=== PATIENT | male | born 1955 | race Two or more races ===

== ENCOUNTER 2018-05-04 14:32 | Emergency (ER) | payer MEDICAID ==
[~2018-05-04] VITALS: Ht 185.4 cm; Wt 102.5 kg
[2018-05-04] MEDS ORDERED: LOSARTAN POTASS50 MG ORAL (14:54)
[2018-05-04] MEDS ORDERED: ASPIRIN325 MG ORAL (14:54)
[2018-05-04] MEDS ORDERED: IMITREX50 MG ORAL (14:54)
[2018-05-04] MEDS ORDERED: DIPHENHYDRAMINE25 M1 ORAL (14:54)
[2018-05-04] MEDS ORDERED: MELATONIN3 MG ORAL (14:54)
[2018-05-04] MEDS ORDERED: LEXAPRO10 MG ORAL (14:54)
[2018-05-04] MEDS ORDERED: TRAZODONE HCL100 MG ORAL (14:54)
[2018-05-04] MEDS ORDERED: HYDROCORTISONE-30 GM TOPIC (15:21)
[2018-05-04] MEDS ORDERED: CLARITIN10 M1 ORAL (15:21)
--- NOTE | 2018-05-04 15:21 | Emergency Room Report ---
History of Present Illness General Chief Complaint: General Complaint Source: Patient Present Illness HPI 62-year-old male patient presents ER complaining of elevated blood pressure and rash on his bilateral arms. reports currently staying at [facility] for clinical depression. Reports was on metoprolol before switching to new medications earlier this week, states was not taking blood pressure medication for the past 5 days before giving dose of valsartan today, states will now be taking valsartan hydrochlorothiazide, has not begun chlorothiazide medication. States had elevated pressure earlier this morning prior to taking valsartan, states after medication was in the "140s", states due to initial concern of elevated blood pressure was told to report to the nearest ER, reports blood pressure controlled at this time, states small elevation likely due to "white coat syndrome". Denies fever, chest pain, shortness of breath. Denies taking blood thinner medication. Denies BRUNNER or abdominal pain. Also complaining of rash on bilateral upper extremities. Reports contact irritation due to use of Clorox bleach wipes on blood pressure cuff was then used on his arms. Reports burning sensation. Reports has been present for the past few days. Reports has washed and thoroughly. Denies fever, chest pain, shortness of breath. denies vomiting. Denies blisters. denies thoughts of hurting herself or others.reports takes Eskalith for depression. Allergies: Coded Allergies: CHLORPROMAZINE (Verified Allergy, Unknown, 05/04/18) PENICILLINS (Verified Allergy, Unknown, 05/04/18) Patient History Past Medical History: see triage record Reviewed Nursing Documentation: PMH: Agreed; PSxH: Agreed Nursing Documentation-PMH Past Medical History: No History, Except For Hx Hypertension: Yes History Of Psychiatric Problem: No - depression Review of Systems All Other Systems: negative except mentioned in HPI Physical Exam Vital Signs Date Time Temp Pulse Resp B/P (MAP) Pulse Ox O2 Delivery O2 Flow Rate FiO2 05/04/18 14:35 98.8 94 18 164/91 97 Room Air 98.8 Sp02 EP Interpretation: reviewed, normal General Appearance: well appearing, no apparent distress, alert, GCS 15, non- toxic Head: normocephalic, atraumatic Eyes: bilateral eye normal inspection, bilateral eye PERRL ENT: hearing grossly normal, normal pharynx, no angioedema, normal voice, uvula midline, moist mucus membranes Neck: full range of motion Respiratory: lungs clear, normal breath sounds, no rhonchi, no respiratory distress, no accessory muscle use, no wheezing, speaking full sentences Cardiovascular #1: regular rate, rhythm, no edema Musculoskeletal: back normal, digits/nails normal, gait/station normal, normal range of motion, non-tender Neurologic: alert, oriented x3, responsive, motor strength/tone normal, sensory intact Psychiatric: mood/affect normal Skin: rash - macular erythematous rash with mild urticaria, no warmth to touch , blanches with pressure, no vesicles or blisters, no surrounding edema Medical Decision Making PA Attestation Dr. Vega is my supervising Physician whom patient management has been discussed with. Diagnostic Impression: Primary Impression: Hypertension Additional Impression: Contact dermatitis ER Course Pt. presents to the ED c/o elevated blood pressure reading, history of hypertension, rash on bilateral arms. Ddx considered but are not limited to blood pressure, [place], whitecoat hypertension , cellulitis, contact dermatitis, scabies, eczema, allergic reaction, shingles. Vital signs: are WNL, pt. is afebrile ER COURSE: patient denies chest pain, shortness of breath, EKG shows no ST elevations or atrial fibrillation. no [place]. Does not require cardiac workup at this time. EKG showed QT prolongation, maybe due to patient's current medications, follow- up with PCP and discuss referral to body designer as needed. EKG discussed with patient. Patient declined xray and labs at this time. Blood pressure stable in the ER. Patient advised to follow-up with physician and discuss blood pressure medication. advised patient on low sodium diet. Patient resting comfortably in bed, reading a book, nontoxic appearing, in no acute distress. ER precautions given. denies thoughts of hurting herself or others at this time, do not believe the patient danger to himself. patient ok for outpatient therapy and follow-up. physical exam shows likely contact dermatitis due to exposure to chemical irritant. Provided patient with hydrocortisone cream in ER, will discharge home with Rx. take Benadryl at night for itching symptoms, side effect drowsiness, do not take prior to drinking, driving, operating machinery. Take Claritin during the day, will provide Rx. Followup with operations vice president. DISCHARGE: Rx provide hydrocortisone cream Rx provided for Claritin At this time pt is stable for d/c to home. Patient is resting comfortably, in no acute distress, nontoxic appearing, talking without difficulty. Patient to take medications as instructed Will provide with patient care instructions and any necessary prescriptions. Care plan and follow-up instructions provided. Patient instructed to follow-up with primary care provider in 3 - 5 days. Patient questions asked and answered. Patient reports understanding and agreement to treatment plan. ER precautions given. Patient instructed to return to ER immediately for any new or worsening of symptoms including but not limited to increasing SOB, persistent fever, chest pain, intractable vomiting. - Please note that this Emergency Department Report was dictated using [employer] traffic manager technology software, occasionally this can lead to erroneous entry secondary to interpretation by the dictation equipment. EKG Diagnostic Results Rate: normal Rhythm: NSR ST Segments: no acute changes Other Impression QT prolongation QT/QTc 424/483 ms ASA given to the pt in ED: No PA Scribe Text Luigi Denney PA-C Rhythm Strip Diag. Results EP Interpretation: yes Rate: 78 Rhythm: NSR, no PVC's, no ectopy PA Scribe Text Luigi Denney PA-C Last Vital Signs Date Time Temp Pulse Resp B/P (MAP) Pulse Ox O2 Delivery O2 Flow Rate FiO2 05/04/18 14:35 98.8 94 18 164/91 97 Room Air 98.8 Disposition: HOME, SELF-CARE Condition: Stable Scripts Loratadine (CLARITIN) 10 Mg Tab.rapdis 10 MG ORAL DAILY, #30 TAB Prov: Shahriar Denney 05/04/18 Hydrocortisone/Aloe Vera 1%* (HYDROCORTISONE-ALOE 1% CREAM*) Y Cr 1 APPLIC TOPIC Q6H PRN for Itching, #30 GM Prov: Shahriar Denney 05/04/18 Patient Instructions: Contact Dermatitis, [id number], DASH Eating Plan, Hypertension Additional Instructions: Followup with primary care provider in 3 -5 days. Discuss HTN medications. Request referral to dermatology as needed. Do not scratch or itch. Apply cool compresses to affected area. Take medications as directed. Do not apply topical steroid medication to face or skin creases. Apply small amount to affected area. SE Benadryl drowsiness, do not take prior to drinking, driving, operating heavy machinery. Take Claritin during the day and Benadryl at night for itching symptoms. Patient questions asked and answered. ER precautions given, patient instructed to return to ER immediately for any new or worsening of symptoms. [facility] [place] [place] [facility] Shahriar Denney May 04, 2018 15:21
[2018-05-04 15:35] VITALS: BP 166/92
[2018-05-04] MEDS ORDERED: Hydrocortisone 1% Cr 15gm TOPIC ONE (15:45)
[2018-05-04 16:14] VITALS: BP 166/92
--- NOTE | 2018-05-06 12:04 | Cardiology Report ---
APPROVED REPORT EKG Measurement Heart [id number] Normal sinus rhythm Prolonged QT Abnormal ECG
== END 2018-05-04 16:14 | disposition home or self-care (01) ==
LOC: EMR 15:42
DX: I10 Essential (primary) hypertension (principal); L25.9 Unspecified contact dermatitis, unspecified cause; Z88.0 Allergy status to penicillin; Z88.8 Allergy status to other drugs, medicaments and biological substances
CPT/HCPCS: 93005; 99283